=== PATIENT | male | born 1935 | race Caucasian/White ===

== ENCOUNTER 2019-02-21 08:09 | Observation (INO) | payer MEDICARE, OTHER ==
--- NOTE | 2019-02-11 14:30 | HP ---
CC: Dr. Serafin Chavez; Dr. Acosta Rodriguez; Dr. Justin Bolton * ADMISSION HISTORY AND PHYSICAL: DATE OF ADMISSION: 02/21/19 ATTENDING SURGEON: Dr. Juan Manuel Shaw * (ISAI Garrison, dictating). CHIEF COMPLAINT: Gallstones. HISTORY OF PRESENT ILLNESS: This is a 83-year-old male who states that over the past year or so, he has had several episodes of symptoms that have subsequently been diagnosed as being related to gallbladder disease. He describes most of the symptoms occurring after eating characterized by nausea with vomiting, sweating, and his most recent episode of lightheadedness with loss of consciousness. He also describes abdominal pain "all over". After the vomiting subsides, he gradually improves over the next couple of days and back to his baseline. As a result of these episodes and a more conservative diet, he has lost approximately 20 pounds. He does relate noting dark urine with at least a couple of the episodes. He did undergo lab work in May 2018, which apparently showed chemical evidence of pancreatitis. CT scan of the abdomen and pelvis on 05/21/18 showed some inflammatory changes around the pancreas with a small fluid collection as well as diverticulosis, but no evidence of diverticulitis. A subsequent ultrasound on 05/31/18 showed fatty liver changes and either a single large stone or gallbladder packed with stones , but without any pericholecystic fluid or gallbladder wall thickening. Common bile duct was normal in diameter. On subsequent lab testing from 01/07/19, his liver function tests and lipase were normal. His CRP at that time was elevated at 68. Because of the episode of syncope, he was evaluated by Dr. Bolton who found no abnormalities following a 24-hour Holter monitor. EKG does show first degree AV block with baseline sinus bradycardia. Dr. Bolton felt the episode was likely vasovagal related to the abdominal/GI episode and was not cardiogenic ( see separate note from Dr. Bolton). The patient was seen by Dr. Shaw in the office on 01/11/19. After review of his workup and exam, and it was felt that symptoms were consistent with gallbladder disease and recommendations were made for cholecystectomy. The patient understands the indications risks, benefits and alternatives and would like to proceed as scheduled with laparoscopic cholecystectomy. PAST MEDICAL HISTORY: Hypertension, multiple basal cell and squamous cell skin cancers followed by Dermatology (regularly), first degree AV block by recent EKG , one apparent past episode of paroxysmal atrial fibrillation but this has not been sustained. PAST SURGICAL HISTORY: Previous surgeries include multiple basal and squamous cell skin cancers removed, some requiring skin grafts. He has not had any abdominal surgeries. CURRENT MEDICATIONS: 1. Metoprolol succinate extended release 25 mg once daily. 2. Lisinopril 10 mg once daily. ALLERGIES: No known. FAMILY HISTORY: Negative for gallbladder disease, and also negative for anesthesia problems, bleeding or clotting disorders. SOCIAL HISTORY: The patient is . 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 He is a former smoker with approximately 10 to 12 pack year history who quit around 1979. He drinks on average 1 to2 glasses of wine per day, though in recent weeks has abstained from alcohol. He denies any other recreational drug use. REVIEW OF SYSTEMS: General: No recent constitutional symptoms or acute illnesses other than described above including subsequent weight loss. Dermatological: Multiple skin cancers (basal cell and squamous cell; followed by Dermatology). He also notes having frequent tick bites but no symptoms or rash to suggest Lyme disease. HEENT: He uses bilateral hearing aides. He states that he does have cataracts in both eyes but has not undergone surgery. Cardiovascular: As above, see separate note from Dr. Bolton. Respiratory: No chronic cough or shortness of breath. GI: As above per HPI. No lower GI symptoms. He has never had a screening colonoscopy. EGD was done by Dr. Rodriguez in June 2018 showing a small to medium hiatal hernia. : No problems reported. Endocrine: No diabetes or thyroid dysfunction. PHYSICAL EXAMINATION GENERAL: Well-nourished, well-developed male in no acute distress. VITAL SIGNS: Height 5 feet 7 inches, weight 164 pounds. Temperature 97.5, blood pressure 112/78, pulse 66, respirations 16. HEENT: Pupils are equal, round, and reactive. EOMs intact. No conjunctival pallor or scleral icterus. Oropharynx: Teeth in good repair. No intraoral lesions. NECK: No lymphadenopathy, thyromegaly, or masses. LUNGS: Clear to auscultation. No rales or wheezes. HEART: Regular rate and rhythm. No murmur appreciated. ABDOMEN: Soft, nontender to palpation. No palpable masses or organomegaly. GENITALIA: Not done. RECTAL: Not done. BACK: No spinous process or CVA tenderness. EXTREMITIES: No edema. NEUROLOGICAL: Grossly intact. SKIN: With various lesions over the forehead and face, none of which appear suspicious. Full skin survey not performed. IMPRESSION: Symptomatic cholelithiasis. PLAN: Laparoscopic cholecystectomy. ISAI GARRISON [id number]/[facility] #: [id number] [facility] HOSPITALKam
[~2019-02-21 08:09] MED LIST: Buffered Lidocaine 1% SYRIN* 1 ML/SYRINGE INTRADERM ONE; Dexamethasone IV* 4 MG/ML 1 ML (4 MG) IV SLOW PU ONE; Famotidine IV* 10 MG/ML 2 ML (20 mg) IV ONE; Lactated Ringers 1000 ML Bag* 1,000 ML IV SCH
[2019-02-21] MEDS ORDERED: Famotidine IV* 10 MG/ML 2 ML (20 mg) ONE (08:21)
[2019-02-21] MEDS ORDERED: ceFAZolin 2 GM PREMIX in ORs 2 GM/50 ML BAG ONE (08:21)
[2019-02-21] MEDS ORDERED: Dexamethasone IV* 4 MG/ML 1 ML (4 MG) ONE (08:21)
[2019-02-21] MEDS ORDERED: Bupivacaine 0.25% EPI 200,000* 30 ML SDV ONE (09:11)
[2019-02-21] MEDS ORDERED: fentaNYL* 50 MCG/ML 2 ML VIAL (100 MCG VIAL) ONE (09:31)
[2019-02-21] MEDS ORDERED: Lidocaine 2% PF * 5 ML VIAL ONE (09:32)
[2019-02-21] MEDS ORDERED: Propofol* 10 MG/ML 20 ML BTL ONE (09:32)
[2019-02-21] MEDS ORDERED: Ondansetron INJ* 2 MG/ML VIAL ONE (09:32)
[2019-02-21] MEDS ORDERED: Ketorolac INJ* 30 MG/ML 1 ML VIAL ONE (09:32)
[2019-02-21] MEDS ORDERED: Rocuronium* 10 MG/ML VIAL ONE ×2 (09:36→11:47)
[2019-02-21] MEDS ORDERED: EPHEDrine (Pressors)* 50 MG/ML VIAL ONE (10:30)
[2019-02-21] MEDS ORDERED: Glycopyrrolate IV* 0.2 MG/ML 1 ML VIAL ONE (10:34)
[2019-02-21] MEDS ORDERED: Neostigmine Methylsulfate* 1 MG/ML 10 ML VIAL (1 mg/ml) ONE (10:35)
[2019-02-21] MEDS ORDERED: Naloxone* 0.4 MG/ML 1 ML VIAL IV PRN (10:53)
[2019-02-21] MEDS ORDERED: diPHENhydraMINE IV* 50 MG/ML 1 ml VIAL (BENADRYL) IV PRN (10:53)
[2019-02-21] MEDS ORDERED: fentaNYL* 50 MCG/ML 2 ML VIAL (100 MCG VIAL) IV PRN (10:53)
[2019-02-21] MEDS ORDERED: Ondansetron INJ* 2 MG/ML VIAL IV PRN (12:31)
[2019-02-21] MEDS ORDERED: Docusate CAP* 100 MG PO PRN (12:31)
[2019-02-21] MEDS ORDERED: HYDROmorphone INJ1* 1 MG/ML SYRINGE IV SLOW PU PRN (12:31)
[2019-02-21] MEDS ORDERED: HYDROcodone/ACETAMIN 5-325 MG* 1 TAB PO PRN (12:31)
[2019-02-21] MEDS ORDERED: Ibuprofen TAB* 600 MG PO PRN (12:31)
[2019-02-21] MEDS ORDERED: Acetaminophen TAB* 325 MG PO PRN (12:31)
[2019-02-21] MEDS: Lactated Ringers 1000 ML Bag* 1,000 ML IV SCH (13:49)
[2019-02-21] MEDS: ceFOXitin 2 GM IVPREMIX* 2 GM/50 ML BAG IVPB SCH (17:48)
[2019-02-21] MEDS: Heparin VIAL(*) 5000 UNITS/ML VIAL (FIVE THOUSAND) SUBCUT SCH (21:33)
[2019-02-22] MEDS: ceFOXitin 2 GM IVPREMIX* 2 GM/50 ML BAG IVPB SCH ×2 (01:52→10:00)
[2019-02-22] MEDS: Lactated Ringers 1000 ML Bag* 1,000 ML IV SCH (03:59)
[2019-02-22] MEDS: Heparin VIAL(*) 5000 UNITS/ML VIAL (FIVE THOUSAND) SUBCUT SCH (05:53)
[2019-02-22 06:13] LABS: ABS Lymphocytes 1.5 10^3/ul (1.0-4.8); ABS Monocytes 0.9 10^3/ul (0-0.8); ABS Neutrophils 9.8 10^3/ul (1.5-7.7); Hematocrit 33 % (42-52); Hemoglobin 11.6 g/dL (14.0-18.0); Lymphocyte % 12.3 %; Mean Corpuscular HGB Conc 35 g/dL (31-36); Mean Corpuscular Hemoglobin 33 pg (27-31); Mean Corpuscular Volume 94 fL (80-94); Platelet Count 119 10^3/uL (150-450); Red Blood Count 3.56 10^6 /uL (4.18-5.48); Red Cell Distribution Width 13 % (10-15); White Blood Count 12.3 10^3/uL (3.5-10.8)
[2019-02-22 06:22] LABS: Albumin 3.7 g/dL (3.2-5.2); Albumin/Globulin Ratio 1.3 (1-3); BUN/Creatinine Ratio 23.5 (8-20); Calcium 8.8 mg/dL (8.6-10.3); EGFR African American 70.5 (>60); EGFR Non-African American 58.2 (>60); Globulin 2.8 g/dL (2-4); Potassium 4.7 mmol/L (3.5-5.0); Total Bilirubin 0.6 mg/dL (0.2-1.0); Total Protein 6.5 g/dL (6.4-8.9)
[2019-02-22 07:33] VITALS: BP 154/52
--- NOTE | 2019-02-22 08:34 | PN ---
Progress Note - Progress Note Date of Service: 02/22/19 SOAP: Subjective:POD#1 s/p laparoscopic cholecystectomy hungry,no n/v,denies pain;voiding;wants to go home [] Objective: Vital Signs Temp 98.2 F 02/22/19 07:32 Pulse 56 02/22/19 07:32 Resp 18 02/22/19 07:32 BP 154/52 02/22/19 07:32 Pulse Ox 98 02/22/19 07:32 Intake & Output 02/21/19 02/22/19 02/22/19 18:59 06:59 18:59 Intake Total 1105 1920 330 Output Total 620 988 150 Balance 485 932 180 Weight 164 lb Intake: IV Fluids 1105 980 330 ABX - CEFOXITIN 55 LR 1000 980 NS 50ML, Cefazolin 2G 50 IVPB 50 ABX - CEFOXITIN 50 Oral 890 Output: BELEN #1 20 53 Urine 50 935 150 Straight Cath 550 lungs:clear bilat;heart:RRR,HR 56;abd:+bs,soft,nondistended;lap sites intact with steristrips,clean and dry;BELEN serosang,no obvious bile;ext:no edema,+pulses [] Assessment:stable,ambulatory,doing well pod#1 s/p lap sukhwinder [] Plan:remove BELEN,discharge home today,Dr Shaw agrees;office followup 03/01/19 []
[2019-02-22] MEDS ORDERED: Metoprolol Tartrate TAB* 25 MG PO SCH (09:00)
[2019-02-22] MEDS ORDERED: Lisinopril TAB* 10 MG PO SCH (09:00)
--- NOTE | 2019-02-22 09:43 | DS ---
ADDENDUM: TIME SPENT: Sixty minutes with greater than 50% in [id number], patient education and coordination of care. DARRICK PRITCHETT NP [id number]/[facility] #: [id number] CUONG
--- NOTE | 2019-02-22 10:19 | DS ---
ADDENDUM INCLUDED ON THIS REPORT CC: Dr. Serafin Chavez; Dr. Justin Bolton * DISCHARGE SUMMARY: DATE OF ADMISSION: 02/21/19 DATE OF DISCHARGE: 02/22/19 ATTENDING SURGEON: Juan Manuel Shaw MD.* (DICTATED BY DARRICK PRITCHETT NP) HOSPITAL COURSE: Please refer to admission history and physical for admission details. The patient was taken to the operating room on , 02/21/19, and underwent laparoscopic cholecystectomy by Dr. Shaw. He was admitted for observation overnight for intravenous antibiotics due to [id number] cholecystitis and cholelithiasis. He had an uneventful postoperative course, he did not require any pain medication and the BELEN drain did not reveal any bile. He was able to meet the criteria of a low-fat diet, he ambulated in the rios, he was urinating in large amounts. He was seen this morning by myself and Dr. Shaw and he met criteria for discharge. PHYSICAL EXAMINATION: General: Well appearing, in no acute distress. Vital signs are stable. He is afebrile. O2 saturation on room air 98%. Lungs: Breath sounds bilaterally clear and equal. Heart: Regular rate and rhythm. No murmurs or rubs appreciated. Heart rate was 56 and therefore, this morning' s dose of metoprolol was held. Abdomen: Laparoscopic port sites are intact with Steri-Strips, which are clean and dry; there is no surrounding erythema; there are active bowel sounds. His abdomen is soft and nondistended and has appropriate incisional tenderness. The Cj-Dockery drain was removed with ease. The drainage was serosanguineous; a dry gauze 4 x 4 was placed over the drain exit site. Skin: Warm and dry. Extremities are warm without edema or skin ulceration. IMPRESSION: His condition is stable for discharge status post laparoscopic cholecystectomy; he is doing extremely well. PLAN: Discharge home today. Instructions were reviewed with the patient and his ; he has a followup appointment in our office on 03/01/19. Pain medications were reviewed and he has a prescription for hydrocodone, acetaminophen at home as needed and he may use over- the-counter Tylenol for mild pain. All of his questions were answered and all of his 's questions were answered as well. ADDENDUM: TIME SPENT: Sixty minutes with greater than 50% in [id number], patient education and coordination of care. DARRICK PRITCHETT, JOB COACH [id number]/[facility] #: [id number]/[facility] #: [id number] CUONG
--- NOTE | 2019-02-24 14:04 | OP ---
CC: Serafin Chavez MD * DATE OF OPERATION: 02/21/19 - ROOM #337 DATE OF : 33 SURGEON: Dr. Juan Manuel Shaw. CAKE CUTTER MACHINE: Victorina Garcia NP ANESTHESIA: General endotracheal. PRE-OP DIAGNOSIS: Symptomatic gallstones. POST-OP DIAGNOSIS: Symptomatic gallstones. OPERATIVE PROCEDURE: Laparoscopic cholecystectomy. ESTIMATED BLOOD LOSS: Minimal. IV FLUIDS: Crystalloids. SPECIMEN: Gallbladder and contents. DRAINS: 7 mm Cj Dockery. COMPLICATIONS: None. COUNTS: The instruments, needle and sponge counts were correct. DESCRIPTION OF PROCEDURE: The patient was brought to the operative room and placed on the table supine. Sequential compression devices were placed on both lower extremities. General anesthesia was administered. He was positioned and padded appropriately. He received appropriate intravenous antibiotics. He was prepped and draped in the usual sterile fashion and a time-out was performed. Local anesthetic was infiltrated into the skin and soft tissue prior to making each incision. Entry into the abdomen was through a transumbilical incision made vertically. After accessing the peritoneal cavity, a 12 mm trocar was placed. Carbon dioxide was then insufflated to a pressure of 15 mmHg. Under direct visualization, 5 mm trocars were placed, one in the subxiphoid position and two in right upper quadrant. The omentum covering the gallbladder was elevated and there were adhesions of this to the gallbladder. These were taken down bluntly. The gallbladder did appear to be chronically and acutely inflamed. The gallbladder was packed with stones and was difficult to manipulate. The gallbladder fundus was grasped to retract it cephalad. Upon grasping the area of the infundibulum and retracting it, there was a rent made in what appeared to be the cystic duct with some cloudy looking bile and small stones emanating from the site. Endoscopic suction was used to control this drainage. The dissection proceeded higher upon the gallbladder to dissect away the cystic node. The structure identified as a cystic artery, it will be clipped and divided; however, there was some additional bleeding from deeper within that area of the triangle of Calot. It was decided at this point to work on dissection, retrograde, working from the fundus. In order to achieve this, first cautery was used to create a plane between the wall of the gallbladder and gallbladder fossa. The plane was difficult to identify and ultimately ended up creating a cholecystotomy and extracting gallstones with smooth biopsy forceps as well as a 10 mm suction. In this fashion, I was able to clear the gallbladder stones and then working from within the gallbladder, created a larger fenestration and performed a fenestrated subtotal cholecystectomy initially. This was done leaving the posterior wall on the gallbladder fossa and then the gallbladder wall was removed using an endoscopic retrieval bag and any additional stones were retrieved using smooth biopsy forceps as well as a 10 mm suction. The prior area that I had identified as a rent in the cystic duct was 1 cm away from where the gallbladder had been divided for the subtotal cholecystectomy. The area was inspected. The bile coming from this site was now clear. There was no evidence of stones in the area. It was decided it will not be possible to dissect out the cystic duct any further. I did place 3- 0 silk sutures to both repair the rent in the duct and then to oversew the open end of the gallbladder in figure-of- eight fashion. This achieved adequate closure of the gallbladder stump. Copious irrigation was performed until clear. Hemostasis at this time was excellent. I then decided to place a 7 mm Cj Dockery drain placing into the area of Rosas's pouch and withdrawing it through the lateral 5 mm trocar, suturing it to skin with a 3-0 Prolene. The remaining trocars were removed and carbon dioxide was released. The umbilical incision was closed with 0 Vicryl to approximate the fascia and then the skin incisions were closed with 4-0 Monocryl in subcuticular fashion and then dressings were applied. The patient tolerated the procedure well, was extubated uneventfully, and was transferred to recovery in stable condition. [id number]/[facility] #: [id number] CUONG
== END 2019-02-22 10:54 | disposition home or self-care (01) ==
LOC: OR 08:09 → SSU 12:31
PROVIDERS: ADMIT Surgery; ATTEND Surgery
DX: K80.00 Calculus of gallbladder with acute cholecystitis without obstruction (principal); I10 Essential (primary) hypertension; Z87.891 Personal history of nicotine dependence; M54.9 Dorsalgia, unspecified; R42 Dizziness and giddiness; R55 Syncope and collapse; Z85.828 Personal history of other malignant neoplasm of skin
CPT/HCPCS: 36415; 80053; 85025; 88304; 96361; 96365; 96375; A9270-GY; G0378; J0690; J0694; J1100; J1885; J2405; J2704; J2710; J3010